=== PATIENT | female | born 1955 | race Caucasian/White ===

== ENCOUNTER → 2020-08-13 15:21 | Outpatient (CLI) | payer OTHER, SELFPAY ==
--- NOTE | ~2020-08-13 | MM_ITS ---
EXAMINATION: MM screening [facility] BI w sayda HISTORY: Screening TECHNIQUE: Craniocaudal and mediolateral oblique 3-D tomosynthesis images were obtained and synthetic 2-D images were generated. CAD analysis was submitted and interpreted. COMPARISON: Comparison to multiple prior studies sequentially, with oldest reviewed study dated 08/2012. BREAST PARENCHYMAL COMPOSITION: There are scattered areas of fibroglandular density. FINDINGS: There is no evidence of suspicious mass, calcification, or architectural distortion to sugg est malignancy in either breast. There has been no suspicious interval change. IMPRESSION: 1. No mammographic evidence of malignancy. 2. Recommend routine screening mammography in one year. BI-RADS Category 1: Negative Reviewed, dictated and finalized at location A. TENDER
== END ==
PROVIDERS: Visit Provider Obstetrics & Gynecology
DX: Z12.31 Encounter for screening mammogram for malignant neoplasm of breast (principal)
CPT/HCPCS: 77063; 77067

== ENCOUNTER 2021-03-22 07:46 | Outpatient (RCR) | payer OTHER, MEDICARE, SELFPAY ==
[2021-03-22] MEDS: diphenhydrAMINE HCl CAP 25 MG CAPSULE PO (08:03)
[2021-03-22] MEDS: FAMOTIDINE 20 MG TABLET PO (08:03)
[2021-03-22] MEDS: ACETAMINOPHEN 325 MG TABLET 650 MG PO (08:03)
[2021-03-22 08:15] VITALS: BP 129/60; PULSE 87; RESP 18; TEMP 36.9; O2SAT 100
--- NOTE | 2021-03-22 08:24 | PC.NURSE ---
Patient has not had any COVID vaccinations at this point.
[2021-03-22 09:38] VITALS: BP 130/74; PULSE 61; RESP 18; TEMP 36.6; O2SAT 99
--- NOTE | 2021-03-25 11:43 | PC.NURSE ---
Called patient to follow-up regarding antibody infusion on 03/22/21. Patient states she is feeling well and denies any side effects at this time.
== END 2021-03-22 16:30 | disposition home or self-care (01) ==
LOC: AMCINF 07:46
PROVIDERS: PCP Family Medicine; Referring Provider Family Medicine; Visit Provider Internal Medicine Hematology & Oncology
DX: Z23 Encounter for immunization (principal); U07.1 COVID-19; I10 Essential (primary) hypertension; E11.9 Type 2 diabetes mellitus without complications
CPT/HCPCS: A9270; J7050; M0243

== ENCOUNTER → 2021-11-19 12:05 | Outpatient (CLI) | payer OTHER, SELFPAY ==
--- NOTE | ~2021-11-19 | MM_ITS ---
EXAMINATION: MM screening [facility] BI w sayda HISTORY: Screening mammogram TECHNIQUE: Craniocaudal and mediolateral oblique 3-D tomosynthesis images were obtained and synthetic 2-D images were generated. CAD analysis was submitted and interpreted. COMPARISON: 08/13/2020, 04/12/2019, 03/05/2018 BREAST PARENCHYMAL COMPOSITION: There are scattered areas of fibroglandular density. FINDINGS: There is no suspicious mass, calcification, or architectural distortion to suggest malignan cy in either breast. There has been no suspicious interval change. IMPRESSION: 1. No mammographic evidence of malignancy. 2. Recommend routine screening mammography in one year. BI-RADS Category 1: Negative Reviewed, dictated and finalized at location A.
== END ==
PROVIDERS: PCP Obstetrics & Gynecology; Visit Provider Obstetrics & Gynecology
DX: Z12.31 Encounter for screening mammogram for malignant neoplasm of breast (principal)
CPT/HCPCS: 77063; 77067

== ENCOUNTER 2023-06-22 08:39 | Outpatient (CLI) | payer OTHER, SELFPAY ==
--- NOTE | 2023-06-22 09:17 | ECHO_ITS ---
Patient Info Name: Carolyne Akbar Age: 68 years : 1955 Gender: Female Ht: 62 in Wt: 150 lbs BSA: 1.74 m2 HR: 76 bpm BP: 140 / 84 mmHg Technical Quality: Good Exam Date: 06/22/2023 9:24 AM Exam Location: Echo Lab Patient Status: Outpatient Admit Date: 06/22/2023 Staff Ordering Physician: Gabriella Rust Surveillance Observer: Michelle Monsalve RDCS Attending Provider: Gabriella Rust Referring Physician: Barrera LA; Exam Type: CA echo doppler color flow Study Info Indications R01.1 - Cardiac murmur, unspecified Complete two-dimensional, color flow and Doppler transthoracic echocardiogram is performed. Summary 1. Complete two-dimensional, color flow and Doppler transthoracic echocardiogram is performed. 2. Left ventricular chamber dimension is normal. 3. Left ventricular systolic function is normal, estimated at 60-65%. 4. The left ventricular diastolic function is grade I diastolic dysfunction. 5. E/e' 7 is not elevated. 6. Global longitudinal strain is mildly abnormal at -16.5%. 7. The mitral valve has mildly calcified annulus. 8. There is trace mitral valve regurgitation. 9. No pulmonary hypertension, estimated pulmonary arterial systolic pressure is 31 mmHg. Left Ventricle E/e' 7 is not elevated. Global longitudinal strain is mildly abnormal at -16.5%. Left ventricular chamber dimension is normal. Left ventricular systolic function is normal, estimated at 60-65%. The left ventricular diastolic function is grade I diastolic dysfunction. Right Ventricle Right ventricular chamber dimension is normal. Right ventricular systolic function is normal. Left Atria Left atrial chamber dimension is normal. Right Atria Right atrial chamber dimension is normal. Aortic Valve The aortic valve is trileaflet. There is no aortic valve stenosis. There is no aortic valve regurgitation. Pulmonic Valve There is no pulmonic regurgitation. Mitral Valve The mitral valve has mildly calcified annulus. There is no mitral valve stenosis. There is trace mitral valve regurgitation. Tricuspid Valve There is no tricuspid valve regurgitation. No pulmonary hypertension, estimated pulmonary arterial systolic pressure is 31 mmHg. Pericardium/Pleural There is no pericardial effusion. Inferior Vena Cava Normal inferior vena cava with >50% collapse upon inspiration consistent with normal right atrial pressure, 5 mmHg. Aorta The aortic root size at the sinus of Valsalva is normal. Left Ventricular Outflow Tract Name Value Normal LVOT 2D LVOT Diameter 1.9 cm LVOT Doppler LVOT Peak Gradient 4 mmHg LVOT Mean Gradient 2 mmHg LVOT VTI 19 cm LVOT VTI/AV VTI Ratio 0.8 LVOT Stroke Volume 58 ml LVOT CO 4.9 l/min LVOT CI 2.8 l/min/m2 Pulmonic Valve Name Value Normal RVOT Doppler
== END 2023-06-22 08:40 | disposition home or self-care (01) ==
PROVIDERS: PCP Nurse Practitioner Family; Visit Provider Nurse Practitioner Family
DX: R01.1 Cardiac murmur, unspecified (principal); I34.81 Nonrheumatic mitral (valve) annulus calcification
CPT/HCPCS: 93306

== ENCOUNTER 2023-10-21 10:00 | Outpatient (RCR) | payer OTHER, SELFPAY ==
--- NOTE | 2023-07-29 16:06 | PTOPEVAL1 ---
Assessment and note entered by Candace Bell, PT Evaluation Information Assessment Status Evaluation Diagnosis Pain in right ankle and joints of the foot, hx of (healed) traumatic fx weakness stiffness of right ankle Onset Apr 2023 Subjective Information Had been having sciatica since last April and notes pain in foot also diminished. Is not bothering like it was, could barely walk on it for a while. Has not tried walking for fitness since this started. Has been walking in the pool for about 45 minutes with no problems. Reported Pain Level Pain Score 0: Self Report Assessment PT Clinical Summary Pt presents for right foot pain with history of prior fracture well healed. Pt notes she had her foot pain at the same time as she had sciatic pain , and the pain reduced/resolved when the sciatic pain resolved. Pt does demonstrate decreased active and passive ROM right ankle complex compared to left, and decreased strength especially in plantar flexion. She also demo's decreased flexibility of the gastroc and soleous muscles, abnormal postural alignment, and functional gluteus medius weakness demo'd by abnormal gait. Pt was educated on appropriate arch supports, returning to high level activities, improving glutesus medius strength, and when to return to therapy if needs further skilled assistance in returning to her PLOF. Plan of Care Interventions Check Out for Orthotic/Pr,Electrical Stimulation, Gait Training,Manual Therapy,Neuro Re-education, Patient/Caregiver Educati,Therapeutic Activities, Therapeutic Exercise,Self-Care/Home Management PT Services Indicated Yes Treatment Frequency and 6 visits in 30 days Duration These treatments will address the objective and functional deficits as defined above. The patient will be advanced safely and appropriately in order for the patient to progress towards his/her prior level of function. Additional exercises will be introduced and as well as a comprehensive home exercise program upon discharge, if needed, ?to ensure carryover of functional gains achieved in the clinic. This treatment plan has been reviewed and agreement upon by the patient.
--- NOTE | 2023-07-29 16:07 | OPREHPOC ---
Outpatient Therapy Plan of Care This is a Multidisciplinary Plan of Care that may contain components documented by all disciplines (PT, OT, and ST.) PT Goal 1 Goal Pt will be independent in HEP Pt will verbalize understanding of diagnosis and prognosis Target Visit 6 PT Problem 2 PT Problem #2 Edema PT Goal 1 Goal Pt will demo gastroc/soleous flexibility to allow passive dorsiflexion of 8 degrees or better Target Visit 6 PT Problem 3 PT Problem #3 Impaired Strength PT Goal 1 Goal Pt will demo equal strength bilaterally in all tested planes Target Visit 6 PT Problem 4 PT Problem #4 Impaired Endurance PT Goal 1 Goal Pt will report ability to wear appropriate shoe inserts all day without discomfort Target Visit 6 PT Goal 2 Goal Pt will report ability to amb for fitness x 30 minutes or greater not being limited by ankle or foot pain.
--- NOTE | 2023-08-25 13:32 | PTOPEVAL1 ---
Assessment and note entered by Candace Bell, PT Evaluation Information Assessment Status Evaluation Diagnosis Pain in right ankle and joints of the foot, hx of (healed) traumatic fx Onset Apr 2023 Subjective Information Had been having sciatica since last April and notes pain in foot also diminished. Is not bothering like it was, could barely walk on it for a while. Has not tried walking for fitness since this started. Has been walking in the pool for about 45 minutes with no problems. Assessment PT Clinical Summary Pt presents for right foot pain with history of prior fracture well healed. Pt notes she had her foot pain at the same time as she had sciatic pain , and the pain reduced/resolved when the sciatic pain resolved. Pt does demonstrate decreased active and passive ROM right ankle complex compared to left, and decreased strength especially in plantar flexion. She also demo's decreased flexibility of the gastroc and soleous muscles, abnormal postural alignment, and functional gluteus medius weakness demo'd by abnormal gait. Pt was educated on appropriate arch supports, returning to high level activities, improving glutesus medius strength, and when to return to therapy if needs further skilled assistance in returning to her PLOF. Plan of Care Interventions Check Out for Orthotic/Pr,Electrical Stimulation, Gait Training,Manual Therapy,Neuro Re-education, Patient/Caregiver Educati,Therapeutic Activities, Therapeutic Exercise,Self-Care/Home Management PT Services Indicated Yes Treatment Frequency and 6 visits in 30 days Duration These treatments will address the objective and functional deficits as defined above. The patient will be advanced safely and appropriately in order for the patient to progress towards his/her prior level of function. Additional exercises will be introduced and as well as a comprehensive home exercise program upon discharge, if needed, ?to ensure carryover of functional gains achieved in the clinic. This treatment plan has been reviewed and agreement upon by the patient.
--- NOTE | 2023-08-28 11:54 | PTOPPROG ---
Assessment and note entered by Candace Bell, PT Evaluation Information Assessment Status Progress Diagnosis Pain in right ankle and joints of the foot, hx of (healed) traumatic fx Therapy Condition stiffness right ankle joint weakness oth abnormalities of gait and mobility Onset Apr 2023 Subjective Information Pt reports on her vacation she wrapped her ankle. Notes she can walk, longer she walks the more it hurts. Slight rest period improves pain. Pain is worst in the evenings and with going up and down steps in normal pattern. has been wearing her inserts Is still walking in the pool but has not returned to normal fitness. Tried to walk sideways in the poor but noted increased pain in calf and down with this. Assessment PT Clinical Summary Pt returns secondary to ankle and leg pain returning after evaluation. Initially pt attempted to apply DME and knowledge provided to address deficits independently however this appears unsuccessful. Pt cont to demo decreased active ROM and passive ROM right ankle compared to left (+) SLR neural tension, good pelvic alignment likely due to chiro appointment yesterday. Appears pelvic alignment instability and sciatica likely related to ankle mobility deficits causing abnormal stress to the above kinematic chain. Pt will benefit from physical therapy to address deficits and improve pain to meet her functional goals. Plan of Care Interventions Electrical Stimulation,Gait Training,Hot Pack/Cold Pack,Manual Therapy,Neuro Re-education,Patient/ Caregiver Educati,Therapeutic Activities, Therapeutic Exercise Other Interventions not on hardware PT Services Indicated Yes Treatment Frequency and 1-2x weekly x 12 visits Duration These treatments will address the objective and functional deficits as defined above. The patient will be advanced safely and appropriately in order for the patient to progress towards his/her prior level of function. Additional exercises will be introduced and as well as a comprehensive home exercise program upon discharge, if needed, ?to ensure carryover of functional gains achieved in the clinic. This treatment plan has been reviewed and agreement upon by the patient.
--- NOTE | 2023-09-23 11:14 | PCPTNOTE ---
Patient called & cancelled scheduled appointment this date due to having to deal with a pet situation.
--- NOTE | 2023-10-21 17:26 | PTOPPROG ---
Assessment and note entered by Candace Bell, PT Assessment Status Progress Diagnosis Pain in right ankle and joints of the foot, hx of (healed) traumatic fx Onset Apr 2023 Subjective Information Pt states this week is the best she has felt since March. hasn't tried high level activities like gardening yet. Thinks the addition of the deep tissue may have helped. Has modified some ways of doing her high level activities and has not returned to walking the tract but is still in the pool. was able to walk a lot going to a ball game recently, went up and down stadium steps and did ok. Didn't feel bad, wasn't difficulty but wasn't pain free either Reports feeling about 50% improved overall. Wants to try to do gardening and high level activities but is afraid too. Assessment PT Clinical Summary Pt has made significant progress in ROM of right ankle patrick in dorsiflexion. Today she shows continued adhesions though these seem improved. Demo's decreased hip extension right hip passively , decreased gluteus medius (R) and bora gluteus brandon strength as well. Pt does report 50% improvement overall. Considering POC is working on two body parts, and deficits that are chronic in nature, pt is progressing well in her plan of care . Would benefit from continued therapy to continue improving strength, ROM, and focus on higher level activities including returning to fast walking and lifting for gardening purposes. Plan of Care Interventions Electrical Stimulation,Gait Training,Hot Pack/Cold Pack,Manual Therapy,Neuro Re-education,Patient/ Caregiver Educati,Therapeutic Activities, Therapeutic Exercise Other Interventions not on hardware PT Services Indicated Yes Treatment Frequency and 1-2x weekly x 12 visits Duration These treatments will address the objective and functional deficits as defined above. The patient will be advanced safely and appropriately in order for the patient to progress towards his/her prior level of function. Additional exercises will be introduced and as well as a comprehensive home exercise program upon discharge, if needed, ?to ensure carryover of functional gains achieved in the clinic. This treatment plan has been reviewed and agreement upon by the patient.
--- NOTE | 2023-11-11 14:54 | PTOPEVAL1 ---
Assessment and note entered by Candace Bell, PT Evaluation Information Assessment Status Progress Diagnosis Pain in right ankle and joints of the foot, hx of (healed) traumatic fx Therapy Condition stiffness right ankle joint weakness oth. abnormalities of gait and mobility pain in right hip Onset Apr 2023 Subjective Information Pt states this week is the best she has felt since March. hasn't tried high level activities like gardening yet. Thinks the addition of the deep tissue may have helped. Has modified some ways of doing her high level activities and has not returned to walking the track but is still in the pool. was able to walk a lot going to a ball game recently, went up and down stadium steps and did ok. Didn't feel bad, wasn't difficulty but wasn't pain free either Reports feeling about 50% improved overall. Wants to try to do gardening and high level activities but is afraid too. Assessment PT Clinical Summary Pt has made significant progress in ROM of right ankle patrick in dorsiflexion. Today she shows continued adhesions though these seem improved. Demo's decreased hip extension right hip passively , decreased gluteus medius (R) and bora gluteus brandon strength as well. Pt does report 50% improvement overall. Considering POC is working on two body parts, and deficits that are chronic in nature, pt is progressing well in her plan of care . Would benefit from continued therapy to continue improving strength, ROM, and focus on higher level activities including returning to fast walking and lifting for gardening purposes. Plan of Care Interventions Electrical Stimulation,Gait Training,Hot Pack/Cold Pack,Manual Therapy,Neuro Re-education,Patient/ Caregiver Educati,Therapeutic Activities, Therapeutic Exercise Other Interventions not on hardware PT Services Indicated Yes Treatment Frequency and 1-2x weekly x 12 visits Duration These treatments will address the objective and functional deficits as defined above. The patient will be advanced safely and appropriately in order for the patient to progress towards his/her prior level of function. Additional exercises will be introduced and as well as a comprehensive home exercise program upon discharge, if needed, ?to ensure carryover of functional gains achieved in the clinic. This treatment plan has been reviewed and agreement upon by the patient.
== END 2023-10-27 23:59 | disposition home or self-care (01) ==
LOC: ANHHIPT 10:00
PROVIDERS: PCP Nurse Practitioner Family; Visit Provider Family Medicine
DX: M25.571 Pain in right ankle and joints of right foot (principal); Z87.81 Personal history of (healed) traumatic fracture
CPT/HCPCS: 97110; 97140; 97161; 97162; 97750

== ENCOUNTER 2024-01-26 09:00 | Outpatient (RCR) | payer OTHER, SELFPAY ==
--- NOTE | 2024-01-27 17:10 | PTOPDC ---
Assessment and note entered by Candace Bell, PT Evaluation Information Assessment Status Discharge Diagnosis Pain in right ankle and joints of the foot, hx of (healed) traumatic fx Onset Apr 2023 Subjective Information Has done some on walking on land, but the next morning will be stiff and sore. Will ice at that time . Does her stretches daily for her right leg. Will get up in the morning and do her stretches and leg feels good, but will have to do some again at 2 pm because her leg gets tight. Has not considered taking out the plate in the ankle. Still having trouble getting up the steps and her knee pops on the right side. Improvement overall: feels way better than when first came . Back is pretty good, sometimes in the morning is sore but sometimes is related to how she sleeps. But being in the car even for a an hour will get very stiff and has to take it low getting up Reported Pain Level Pain Score 0,0,0: Self Report Assessment PT Clinical Summary Pt has attended therapy consistently for her sciatica type symptoms as well as her right ankle deficits. She has shows significant progress in all aspects of her deficits however appears to have plateaued in therapy. She cont to have significant right ankle ROM deficits, and cont to have discomfort in RLE hamstring/sciatic nerve that requires frequent stretching and exercise to prevent increased pain. Pt will likely benefit at this time from further imaging and/or an orthopedic consultation related to right ankle and right leg pain for further assessment. Plan of Care PT Services Indicated No
== END 2024-01-28 14:42 | disposition home or self-care (01) ==
LOC: ANHHIPT 09:00
PROVIDERS: PCP Nurse Practitioner Family; Visit Provider Nurse Practitioner Family
DX: M25.571 Pain in right ankle and joints of right foot (principal); Z87.81 Personal history of (healed) traumatic fracture
CPT/HCPCS: 97110; 97112; 97116; 97140; 97750

== ENCOUNTER 2024-09-14 14:57 | Outpatient (CLI) | payer OTHER, SELFPAY ==
--- NOTE | ~2024-09-14 | MM_ITS ---
EXAMINATION: MM screening [facility] BI w sayda HISTORY: Screening TECHNIQUE: Craniocaudal and mediolateral oblique 3-D tomosynthesis images were obtained and synthetic 2-D images were generated. CAD analysis was submitted and interpreted. COMPARISON: Comparison to multiple prior studies sequentially, with oldest reviewed study dated 11/04. BREAST PARENCHYMAL COMPOSITION: Not dense: There are scattered areas of fibroglandular density. FINDINGS: There is no evidence of suspicious mass, calcification, or architectural distortion to sugg est malignancy in either breast. There has been no suspicious interval change. IMPRESSION: 1. No mammographic evidence of malignancy. 2. Recommend routine screening mammography in one year. BI-RADS Category 1: Negative Reviewed, dictated and finalized at location A.
== END 2024-09-14 14:58 | disposition home or self-care (01) ==
LOC: MICIMG 15:02
PROVIDERS: PCP Physician Assistant Medical; Visit Provider Obstetrics & Gynecology
DX: Z12.31 Encounter for screening mammogram for malignant neoplasm of breast (principal)
CPT/HCPCS: 77063; 77067

== ENCOUNTER 2024-11-10 08:43 | Outpatient (CLI) | payer OTHER, SELFPAY ==
--- NOTE | ~2024-11-10 | DEXA_ITS ---
Bone Density Report Name: WENDY JOSUE Age: 69 Sex: Female Ethnicity: White Date of : 1955 Indication: postmenopausal; screening for osteoporosis; height loss; Referring Provider: MILENA ROTH I. Study: Bone densitometry was performed. Exam Date: November 10, 2024 Accession number: [id number] Bone Density: Region BMD T-score Z-score Classification AP Spine(L1-L4) 0.805 -2.2 -0.1 Osteopenia Femoral Neck (Left) 0.591 -2.3 -0.6 Osteopenia Total Hip (Left) 0.827 -0.9 0.5 Normal Femoral Neck (Right) 0.579 -2.4 -0.7 Osteopenia Total Hip (Right) 0.704 -1.9 -0.5 Osteopenia Total Hip Mean 0.766 -1.4 0.0 Osteopenia World Health Organization criteria for BMD impression classify patients as: Normal (T-score at or above -1.0), Osteopenia (T-score between -1.0 and -2.5), or Osteoporosis (T-score at or below -2.5). 10-year Fracture Risk(1): Major Osteoporotic Fracture 13% Hip Fracture 2.8% Reported Risk Factors: [place] (), Neck BMD=0.579, BMI=31.7 (1) FRAX(R) Version 3.08. Fracture probability calculated for an untreated patient. Fracture probability may be lower if the patient has received treatment. Clinical Information Provided by Patient: Patient maximum height was 62.5 Menopause Age: 55 Drinks caffeinated beverages Onset of menses at age 12 Number of children 2 Impression: The patient has low bone mass, based on the Right Femoral Neck T-score. The patient has an estimated ten-year risk of hip fracture of 2.8% and an estimated ten-year risk of major fracture of 13%, based on the WHO FRAX algorithm. Discussion: BONE DENSITY IS LOW AT ONE OR MORE SKELETAL SITES. This patient's lowest T-score is low at one or more skeletal sites. It meets the World Health Organization's (WHO) criteria for ?low bone mass? (T-score between -1.0 and -2.5). The patient's 10-year risk of fracture as calculated by FRAX is less than the threshold where pharmacological therapy is recommended by the National Osteoporosis Foundation (NOF). However, all treatment decisions require clinical judgment and consideration of individual patient factors, including patient preferences, comorbidities, previous drug use, risk factors not captured in the FRAX model (e.g., frailty, falls, vitamin D deficiency, increased bone turnover, interval significant decline in bone density) and possible under or overestimation of fracture risk by FRAX. The patient should follow a healthful lifestyle (good nutrition with adequate calcium and vitamin D, and appropriate weight-bearing exercise). Follow-Up: Consider repeating this study in 2 to 3 years to reassess this patient's status, or sooner if there is some new clinical indication. Reported by: DEWEY on 11/10/2024 9:14:00 AM. Reviewed, dictated and finalized at location A.
--- OUTSIDE RECORDS SUMMARY | 2024-11-10 08:50 | XMS_ITS | Encounter Summary ---
Author Organization [facility] Healthcare Address [address] [place] [id number] Care Team Providers Care Executive Assistant To General Counsel Name Role Phone Rocio Samaniego Primary Care Provider [phone] Melinda Berger DO Unavailable [phone] Reason for Visit * Reason Onset Date Comments GI Preprocedure 11/09/2024 Encounter Details Date Type Department Care Team (Late st Contact Info) Description 11/09/[address] [facility] Specialty Services [address] [place] [address] Elke Gibbons RN GI Preprocedure Social History Tobacco Use Types Packs/Day Years Used Date Smoking Tobacco: Never Assessed AUDIT-C Answer Date Recorded Q1: How often do you have a drink containing alc ohol? Monthly or less 08/24/2023 Average Number of Drinks Not on file 024 Frequency of Binge Drinking Not on file 08/13 Personal Safety Answer Date Recorded Have you ever been in or are you currently in a harmful physical or emotional relationship or is someone making you feel afraid or unsafe? Denies 08/24/2023 Comments No Sex and Gender Information Value Date Recorded Sex Assigned at Not on file Legal Sex Female 12:45 AM [employer] Gender Identity Not on file Sexual Orientation Not on file documented as of this encounter Last Filed Vital Signs Vital Sign Reading Time Taken Comments Blood Pressure - - Pulse - - Temperature - - Respiratory Rate - - Oxygen Saturation - - Inhaled Oxygen Concentration - - Weight 74.8 kg (165 lb) 11/09/2024 3:30 PM CDT Height 157.5 cm (5' 2) 11/09/2024 3:30 PM CDT Body Mass Index 30.18 11/09/2024 3:30 PM CDT documented in this encounter Miscellaneous Notes * Telephone Encounter - Elizabeth Baires - 11/10/2024 7:19 AM CDT Info received * Telephone Encounter - Elke Gibbons RN - 11/09/2024 3:34 PM CDT error documented in this encounter Plan of Treatment Not on file documented as of this encounter Visit Diagnoses Not on filedocumented in this encounter Care Teams Executive Assistant To General Counsel Relationship Specialty Start Date End Date Rocio Samaniego PA [address] [place] [id number] PCP - General Physician [employer] 11/08/24 Melinda Berger DO [address] [place] [id number] Family Medicine 11/08/24 documented as of this encounter
--- OUTSIDE RECORDS SUMMARY | 2024-11-10 08:50 | XMS_ITS | Referral Summary ---
Author Organization [facility] Address [address] [place] [id number] Care Team Providers Care Articulation Officer Name Role Phone Rocio Samaniego Primary Care Provider [phone] Melinda Berger DO Unavailable [phone] Encounters Date Type Department Care Team Description 11/09/2024 Telephone [facility] Specialty Services [address] [place] [address] Elke Gibbons, RN GI Preprocedure from Last 3 Months Allergies No known active allergies Medications sodium, potassium & mag sulfates (SUPREP BOWEL KIT) 17.5-3.13-1.6 gram recon solnIndications :Bowel Evacuation Take 354 mL by mouth as directed 1 Bottle 0 Active levothyroxine (SYNTHROID) 75 mcg tablet Take 1 tablet (75 mcg total) 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 Active metFORMIN XR (GLUCOPHAGE XR) 750 mg 24 hr tablet Take 1 tablet (750 mg total) by mouth daily with breakfast Active lisinopril (PRINIVIL,ZESTR IL) 20 mg tablet Take 1 tablet (20 mg total) by mouth daily Active rosuvastatin (CRESTOR) 10 mg tablet Take 1 tablet (10 mg total) by mouth daily Active zolpidem (AMBIEN) 10 mg tablet 2 4 Active Active Problems Problem Noted Date Diagnosed Date Screening for colorectal cancer 02/12/2023 Encounter for colonoscopy due to history of colo janae polyp 06/21/2019 Overview (06/21/2019): Added automatically from request for surgery [id number] Malignant neoplasm of colon 06/04/2016 Obesity with body mass index 30 or greater 05/07 Snoring 05/07/2016 Palpitations 05/07/2016 Obstructive sleep apnea syndrome 03/03/2016 Sensation of chest tightness 01/21/2016 Hyperlipidemia 01/21/2016 Chronic coronary artery disease 01/21/2016 Hypertension 01/21/2016 Paroxysmal tachycardia 01/21/2016 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 Overview (09/19/2016): BENIGN NEOPLASM ADRENAL Hypothyroidism 10/29/2013 Overview (09/19/2016): HYPOTHYROIDISM NOS Benign neoplasm of colon 08/12/2006 Overview (09/24/2017): Description: -s/p lap sigmoid rxn Social History Tobacco Use Types Packs/Day Years Used Date Smoking Tobacco: Never Tobacco Cessation:Counseling Given: Not Answered Alcohol Use Standard Drinks/Week Comments Yes 0 (1 standard drink = 0.6 oz pur e alcohol) AUDIT-C Answer Date Recorded Q1: How often [...] on file 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 Gender Identity Not on file Sexual Orientation Not on file Last Filed Vital Signs Vital Sign Reading Time Taken Comments Blood Pressure 117/67 08/24/2023 10:45 AM CDT Pulse 73 08/24/2023 10:45 AM CDT Temperature 36.1 C (97 F) 08/24/2023 10:25 AM CDT Respiratory Rate 16 08/24/2023 10:45 AM CDT Oxygen Saturation 100% 08/24/2023 10:45 AM CDT Inhaled Oxygen Concentration - - Weight 74.8 kg (165 lb) 11/09/2024 3:30 PM CDT Height 157.5 cm (5' 2) 11/09/2024 3:30 PM CDT Body Mass Index 30.18 11/09/2024 3:30 PM CDT Plan of Treatment Not on file Procedures Procedure Name Priority Date/Time Associated Diagnosis Comments COLONOSCOPY 08/24/2023 9:47 AM CDT from Last 3 Months or Most Recently Relevant to Health Maintenance Results * Colonoscopy (08/24/2023 9:47 AM CDT) Anatomical Region Laterality Modality Other Narrative Procedure Note Brittany Serrato MD - 08/24/2023 9:47 AM CDT ENDOSCOPY LAB Patient Name: Carolyne Akbar Procedure Date: 08/24/2023 9:47 AM Date of : 1955 Admit Type: Outpatient Age: 68 Gender: Female Attending MD: Brittany Serrato M.D. Room: [facility] ENDOSCOPY ROOM 04 Note Status: Finalized Procedure: Colonoscopy Indications: High risk colon cancer surveillance: Personalhistory of colonic polyps, , Last colonoscopy: June2019; Hx of 25mm SSA (2014) Providers: Brittany Serrato M.D. Referring MD: Melinda Berger D.O. Medicines: Monitored Anesthesia Care Complications: No immediate complications. Estimated Blood Loss: Estimated blood loss: none. Procedure: Pre-Anesthesia Assessment: - Prior to the procedure, a History and Physicalwas performed, and patient medications and allergieswere reviewed. The patient's tolerance of previous anesthesia was also reviewed. The risks andbenefits of the procedure and the sedation options and risks were discussed with the patient. All questions were answered, and informed consent was obtained. Prior Anticoagulants: The patient has taken noanticoagulant or antiplatelet agents. ASA Grade Assessment: III -A patient with severe systemic disease. Afterreviewing the risks and benefits, the patient was deemed in satisfactory condition to undergo the procedure. The benefits, risks and alternatives of theprocedure and sedation were discussed and informed consentwas obtained. All questions were answered. Please referto the signed informed consent document in the medical record. The scope was passed under direct vision.The [id number] was introduced through the anusand advanced to the terminal ileum. The colonoscopy was performed without difficulty. The patient tolerated the procedure well. The quality of the bowel preparation was evaluated using the BBPS (BostonBowel Preparation Scale) with scores of: Right Colon = 3, Transverse Colon = 3 and Left Colon = 3 (entiremucosa seen well with no residual staining, smallfragments of stool or opaque liquid). The total BBPS score equals 9. The terminal ileum, ileocecal valve, appendiceal orifice, and rectum werephotographed. Findings: The terminal ileum appeared normal. A small post polypectomy scar was found in the sigmoid colon. Thescar tissue was healthy in appearance. There was no evidence of theprevious polyp. A tattoo was seen in the sigmoid colon. The tattoo site appearednormal. The colon (entire examined portion) appeared normal. External and internal hemorrhoids were found during retroflexion. The hemorrhoids were large. Impression: - The examined portion of the ileum was normal. - A tattoo was seen in the sigmoid colon. Thetattoo site appeared normal. - The entire examined colon is normal. - External and internal hemorrhoids. - No specimens collected. Recommendation: - Patient has a contact number available for emergencies. The signs and symptoms of potential delayed complications were discussed with thepatient. Return to normal activities tomorrow. Written discharge instructions were provided to thepatient. - Discharge patient to home (with escort). - Resume previous diet today. - Continue present medications. - Repeat colonoscopy in 5 years for surveillance. - In the unusual situation that you developabdominal pain, bleeding or other significant problems in the days following this procedure please call my officeat [phone] ([phone]) to speak to my nurse, Felicitas Hernandez. After hours and evenings please call [phone] and speak to the GI fellow rail operations controller. Please tell them that Dr. Serrato did your procedureand that you were instructed to have the fellow call meor the physician covering for me to discuss the management of your condition. If you have an urgent problem, please go to the nearest emergency roomand have the ER doctor call my office during the day or the GI Fellow after hours and weekends to arrange admission or transfer to our facility. Electronically signed by Brittany Serrato MD Brittany Serrato M.D. 08/24/2023 10:22:22 AM Number of Addenda: 0 Note Initiated On: 08/24/2023 9:47 AM us Brittany Serrato MD ENDOSCOPY PROCEDURES Final Resu lt from Last 3 Months or Most Recently Relevant to Health Maintenance Insurance [id number] Member Subscriber Plan / Payer (Ef fective 2021-Present) Name:Carolyne Akbar Relation to Subscriber:Self Name:Carolyne Akbar Payer ID:[id number] (NA) Type:MEDICARE RISK OTHER Address: [address] [place] [id number] [place] [address] ADVANTAGE CHOICE PPO [facility] ADVANTAGE CHOICE PPO Advance Directives For more information, please contact: [phone] * Full Code (Latest Code Status on File) Date Activated Date Inactivated Comments 08/24/2023 9:58 AM 08/24/2023 3:00 PM * Full Code Date Activated Date Inactivated Comments 07/13/2019 6:51 AM 07/13/2019 1:23 PM Care Teams Articulation Officer Relationship Specialty Start Date End Date Rocio Samaniego PA [address] [place] [id number] PCP - General Physician Laboratory [facility] 11/08/24 Melinda Berger DO [address] [place] [id number] Family Medicine 11/08/24
--- OUTSIDE RECORDS SUMMARY | 2024-11-10 08:50 | XMS_ITS | Clinical Summary ---
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 Active metFORMIN XR (GLUCOPHAGE XR) [...] (06/21/2019): Added automatically from request for surgery [id number] Malignant neoplasm of colon 06/04/2016 Obesity with [...] Overview (09/24/2017): Description: -s/p lap sigmoid rxn Encounters Date Type Department Care Team Description 11/09/2024 Telephone [facility] Specialty Services [address] [place] [address] Elke Gibbons, RN GI Preprocedure from Last 3 Months Surgical History Surgery Date Site/Laterality Comments BOWEL RESECTION 06/15/2005 - 06/14/2006 sigmoid resection for villous adenoima ANKLE SURGERY Medical History Medical History Date Comments DM type 2 (diabetes mellitus, type 2) (HCC) Hx of adenomatous colonic polyps Hypothyroidism Hypertension Family History Medical History Relation Name Comments Coronary artery disease Father CAD (coronary artery disease) - (Added by TW Conv) Diabetes Father Family history of diabetes mellitus - (Added by TW Conv) Heart attack Father Family history of myocardial infarction - (Added by TW Conv) Hypertension Father Family history of hypertension - (Added by TW Conv) Stroke Father Family history of cerebrovascular accident (CVA) - (Added by TW Conv) Hypertension Mother Family history of hypertension - (Added by TW Conv) Colon cancer Mother's Brother Colon cance r - (Added by TW Conv) Colon cancer Other 3 Cancer, colon; Colon polyps Other 3 Colon polyps; Relation Name Status Comments Father Mother Mother's Brother Other 1 Alive Other 2 Alive Other 3 Social History Tobacco Use Types Packs/Day Years [...] on file 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 Gender Identity Not on file Sexual Orientation Not on file Obstetrics History Last Filed Vital Signs Vital Sign Reading [...] 11/09/2024 3:30 PM CDT Plan of Treatment Health Maintenance Due Date Last Done Comments Breast Cancer Screening-Mammogram 1955 Depression Screening 1955 Hepatitis C Screening 1955 Osteoporosis Screening-Bone Density Scan 1955 DTaP/Tdap/Td Vaccine (1 - Tdap) 1966 Hepatitis B Screening 1973 Pneumococcal vaccine 65+ (1 of 2 - PCV) 1974 Zoster Vaccine (1 of 2) 2005 Well Visit 65+ 2020 Fall Risk Assessment 08/23/2024 08/24/2023 Influenza Vaccine (Season Ended) 2025 Colon Cancer Screening-Colonoscopy 08/23/2033 08/24/2023, 07/13/2019, 07/04/2016, Additional history exists Colon Cancer Screening-CT Colonography Discontinued 08/24/2023, 07/13/2019, 07/04/2016, Additional history exists Colon Cancer Screening-DNA Stool Discontinued 08/24/2023, 07/13/2019, 07/04/2016, Additional history exists Colon Cancer Screening-FIT Discontinued 08/23, 07/13/2019, 07/04/2016, Additional history exists Colon Cancer Screening-Sigmoidoscopy Discontinued 08/24/2023, 07/13/2019, 07/04/2016, Additional history exists Procedures Procedure Name Priority Date/Time Associated Diagnosis [...] Female Attending MD: Brittany Serrato M.D. Room: [facility] ENDOSCOPY ROOM 04 Note Status: Finalized Procedure: [...] The scope was passed under direct vision.The [id number] was introduced through the anusand advanced to [...] following this procedure please call my officeat [phone] ([phone]) to speak to my nurse, Felicitas Hernandez. After hours and evenings please call [phone] and speak to the GI fellow transition social worker. Please tell them that Dr. Serrato did [...] Recently Relevant to Health Maintenance Insurance [id number] [facility] [employer] ADVANTAGE CHOICE PPO [employer] ADVANTAGE CHOICE PPO Advance Directives For more information, please contact: [phone] * Full Code (Latest Code Status on File) Date Activated Date Inactivated Comments 08/24/2023 9:58 AM 08/24/2023 3:00 PM * Full Code Date Activated Date Inactivated Comments 07/13/2019 6:51 AM 07/13/2019 1:23 PM Care Teams Beater Room Helper Relationship Specialty Start Date End Date Rocio Samaniego PA [address] [place] [id number] PCP - General Physician Cabin Equipment Supervisor 11/08/24 Melinda Berger DO [address] [place] [address] Family Medicine 11/08/24
== END 2024-11-10 08:44 | disposition home or self-care (01) ==
LOC: ANHIMG 08:44
PROVIDERS: PCP Physician Assistant Medical; Visit Provider Physician Assistant Medical
DX: M85.89 Other specified disorders of bone density and structure, multiple sites (principal); Z78.0 Asymptomatic menopausal state
CPT/HCPCS: 77080